=== PATIENT | female | born 1975 | race Caucasian/White ===

== ENCOUNTER → 2020-08-10 13:49 | Outpatient (CLI) | payer OTHER, SELFPAY ==
[2020-08-10] MEDS: COVID-19 VACC #1, MRNA(MOD) 100 MCG/0.5 ML VIAL IM (14:03)
== END ==
PROVIDERS: Family Provider Family Medicine; Visit Provider Internal Medicine
DX: Z23 Encounter for immunization (principal)
CPT/HCPCS: 0011A; 91301

== ENCOUNTER → 2020-09-07 13:44 | Outpatient (CLI) | payer OTHER, SELFPAY ==
[2020-09-07] MEDS: COVID-19 VACC #2, MRNA(MOD) 100 MCG/0.5 ML VIAL IM (13:50)
== END ==
PROVIDERS: Family Provider Family Medicine; Visit Provider Internal Medicine
DX: Z23 Encounter for immunization (principal)
CPT/HCPCS: 0012A; 91301

== ENCOUNTER 2021-08-05 10:28 | Emergency (ER) | payer OTHER, SELFPAY ==
[2021-08-05] VITALS (18 sets, daily range): BP systolic 146–190; BP diastolic 68–103; PULSE 53–69; RESP 18–26; TEMP 36.8; O2SAT 91–100; BMI 37.9
--- NOTE | 2021-08-05 10:48 | DI.RAD.S_ITS ---
PROCEDURE: XR CHEST 1V INDICATIONS: chest pain TECHNIQUE: One view of the chest was acquired. COMPARISON: [facility], , XR CXR 2V, 02/28/2005, 8:35. FINDINGS: Surgical changes and devices: None. 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 Lungs are clear. No pleural effusions or pneumothorax. Mediastinum: Mediastinal contours appear normal. Heart size is normal. Bones and chest wall: No suspicious bony lesions. Overlying soft tissues appear unremarkable. IMPRESSION: 1. No acute cardiopulmonary disease. 2. Chronic left hemidiaphragm elevation. Dictated by: Quirino Heard M.D. on 08/05/2021 at 11:07 Approved by: Quirino Heard M.D. on 08/05/2021 at 11:08
[2021-08-05 11:16] LABS: Add Manual Diff / Slide Review NO; Basophils Absolute Auto 100 /uL (0-100); Basophils Percent Auto 0.8 % (0-2); Eosinophils Absolute Auto 200 /uL (0-450); Eosinophils Percent Auto 3.2 % (2-4); Hematocrit 24.8 % (36-46); Hemoglobin 7.5 g/dL (12.0-16.0); Lymphocytes Absolute Auto 1400 /uL (1100-4500); Mean Corpuscular HGB Conc 30.1 % (30-36); Mean Corpuscular Hemoglobin 18.3 PG (26-34); Mean Corpuscular Volume 60.6 fL (80-100); Monocytes Absolute Auto 500 /uL (0-900); Monocytes Percent Auto 6.6 % (3-14); Neutrophils Absolute Auto 4700 /uL (1500-7000); Neutrophils Percent Auto 68.4 % (50-75); Platelet Count 409 X10^3/uL (150-400); Red Blood Cell Count 4.09 X10^6/uL (4.0-5.2); White Blood Cell Count 6.9 X10^3/uL (4.5-11.0)
[2021-08-05 11:19] LABS: Alanine Aminotransferase 16 IU/L (<35); Albumin 4.6 g/dL (3.5-5.0); Albumin Globulin Ratio 1.3 (1.0-2.8); Alkaline Phosphatase 81 U/L (38-126); Aspartate Aminotransferase 26 IU/L (14-36); BUN Creatinine Ratio 18.6 (6-22); Bilirubin Total 0.7 mg/dL (0.2-1.3); Blood Urea Nitrogen 11 mg/dL (7-17); Calcium 9.5 mg/dL (8.4-10.2); Carbon Dioxide 29 mmol/L (22-32); Chloride 103 mmol/L (98-107); Creatine Kinase 72 U/L (30-135); Estimated Glomerular Filt Rate > 60.0 mL/min (>60); Globulin 3.6 g/dL (1.7-4.1); Glucose 99 mg/dL (70-100); HEMOLYSIS < 15 (0-50); Lipase 105 U/L (23-300); Magnesium 1.6 mg/dL (1.6-2.3); Potassium 3.5 mmol/L (3.4-5.1); Sodium 139 mmol/L (137-145); Total Protein 8.2 g/dL (6.3-8.2)
[2021-08-05 11:28] LABS: Troponin I < 0.012 ng/mL (0.01-0.034)
[2021-08-05 11:50] LABS: COVID19 -Nasal RAPID Negative (Negative)
--- NOTE | 2021-08-05 11:59 | ED_ITS ---
HPI - Chest Pain General Chief Complaint: Chest Pain Stated Complaint: pressure in neck and mild chest pain Time Seen by Provider: 08/05/21 11:26 Source: patient Mode of arrival: Ambulatory Limitations: no limitations History of Present Illness HPI narrative: Patient is a 45-year-old female with history celiac disease presenting with for of symptoms. She says she feels pressure in her neck that is worse when she sits and lays down but improves with standing. She has no difficulty swallowing. She is not dizzy or lightheaded. She has felt fatigued and tired lately. She has had some hair loss is her weight has varied with weight loss and weight gain but thought to be due to other factors. She is also having some chest discomfort which radiates around to her back. She denies any significant shortness of breath dizziness lightheadedness. She denies any black stools. She has been taking a couple of ibuprofen daily to help with her headache and pressure or neck. Blood work has returned to his found to be anemic with hemoglobin 7.5 and hematocrit 24.8. Related Data Previous Rx's Medication Instructions Recorded ferrous sulfate 325 mg (65 mg 325 mg PO DAILY #60 tab 08/05/21 iron) tablet ferrous sulfate 325 mg (65 mg 325 mg PO TID #90 tab 08/05/21 iron) tablet Allergies Allergy/AdvReac Type Severity Reaction Status Date / Time No Known Drug Allergies Allergy Verified 08/05/21 10:52 Review of Systems Review of Systems Narrative: GENERAL: Denies chills, fatigue, malaise, fever, sweats, travel HEENT: See HPI RESPIRATORY: Denies dyspnea, cough, wheezing, hemoptysis, sputum. CARDIOVASCULAR: See HPI GASTROINTESTINAL: Denies nausea, vomiting, abdominal pain, diarrhea, constipation, melena. : Denies dysuria, frequency, incontinence, hematuria, urinary retention, flank pain. MUSCULOSKELETAL: Denies weakness, joint pain, or bony pain SKIN: No rash, no erythema, no pruritus NEUROLOGIC: Denies weakness, dizziness, headache, numbness, change in speech, confusion PSYCHIATRIC: No concerning psychosocial issues. 12 point review of systems is negative except for those stated above and HPI Patient History Surgical History (Updated 11/10/17 @ 06:03 by Conversion Provider) Status post delivery Status post delivery Status post cholecystectomy Status post colposcopy Status post loop electrosurgical excision procedure (LEEP) of cervix Family History (Updated 04/21/14 @ 00:00 by Conversion Provider) Father Age: 72 COPD (chronic obstructive pulmonary disease) Mother Age: 74 Heart problem Respiratory care problem Diabetes mellitus Sister Age: 47 Epilepsy Social History Smoking Status: Never smoker Smoking Status: Never smoker Substance Use Type: does not use Exam Initial Vital Signs Initial Vital Signs: Vital Signs Temperature 98.2 F 08/05/21 10:35 Pulse Rate 65 08/05/21 10:35 Respiratory Rate 18 08/05/21 10:35 Blood Pressure 190/103 H 08/05/21 10:35 Pulse Oximetry 98 08/05/21 10:35 GENERAL: Alert slightly pale 45-year-old female and in no acute distress. HEENT: Head atraumatic,EOMI, pupils reactive, face symmetric, moist] mucous membranes NECK: No obvious mass no thyroid goiter is present, managing own secretions CARDIOVASCULAR: Regular rate and rhythm without murmurs, rubs or gallops. RESPIRATORY: Breath sounds equal bilaterally, no wheezes rales or rhonchi. ABDOMEN: Soft, nontender. Normoactive bowel sounds all 4 quadrants. No guarding or rebound. RECTAL: Guaiac-negative EXTREMITIES: Normal range of motion, no clubbing or edema. Neurovascularly intact NEUROLOGICAL: Alert and oriented x4.Normal gait and speech SKIN: Warm, dry, no laceration, no petechiae, no rashes or lesions. Course Orders Ordered: ED Orders 08/05/21 10:43 Complete Blood Count AUTO DIFF Stat Comprehensive Metabolic Panel Stat Iron Profile (w/ % Saturation) Stat Lipase Stat Magnesium Stat TSH w/ Reflex to FT4 Stat Troponin & CK Cardiac Panel Stat 08/05/21 10:48 XR chest 1V Stat EKG-12 Lead Stat 08/05/21 10:53 COVID19 -Nasal swab/Pre-Proc Stat 08/05/21 12:20 Type and Screen Stat 08/05/21 12:33 CT soft tissue neck w con Stat Vital Signs Vital signs: Vital Signs - 8 hr 08/05/21 11:00 08/05/21 11:01 08/05/21 11:15 Pulse Rate 68 69 64 Respiratory Rate 22 20 24 Blood Pressure 155/86 H 150/85 H Pulse Oximetry 96 97 96 08/05/21 11:30 08/05/21 11:31 08/05/21 11:46 Pulse Rate 69 64 61 Respiratory Rate Blood Pressure 149/68 H 159/100 H Pulse Oximetry 97 97 92 08/05/21 12:00 08/05/21 12:16 08/05/21 12:30 Pulse Rate 61 68 68 Respiratory Rate 26 H 25 H 24 Blood Pressure 163/97 H 169/97 H 173/102 H Pulse Oximetry 95 97 98 08/05/21 12:55 08/05/21 13:00 08/05/21 13:01 Pulse Rate 67 54 L 53 L Respiratory Rate 24 Blood Pressure 153/72 H 151/81 H Pulse Oximetry 100 97 96 08/05/21 13:15 08/05/21 13:30 08/05/21 13:31 Pulse Rate 57 L 58 L 55 L Respiratory Rate Blood Pressure 155/83 H 146/98 H Pulse Oximetry 96 91 95 08/05/21 13:45 Pulse Rate 63 Respiratory Rate 24 Blood Pressure 154/100 H Pulse Oximetry 96 MDM - Chest Pain Lab Data Result diagrams: 08/05/21 10:43 08/05/21 10:43 Labs: Lab Results 08/05/21 08/05/21 08/05/21 Range/Units 10:43 10:43 10:43 WBC 6.9 (4.5-11.0) X10^3/uL RBC 4.09 (4.0-5.2) X10^6/uL Hgb 7.5 L (12.0-16.0) g/dL Hct 24.8 L (36-46) % MCV 60.6 L (80-100) fL MCH 18.3 L (26-34) PG MCHC 30.1 (30-36) % RDW 19.0 H (11.6-14.8) % Plt Count 409 H (150-400) X10^3/uL Neut % (Auto) 68.4 (50-75) % Lymph % (Auto) 21.0 L (25-40) % [place] % (Auto) 6.6 (3-14) % Eos % (Auto) 3.2 (2-4) % Baso % (Auto) 0.8 (0-2) % Neut # (Auto) 4700 (4866-5628) /uL Lymph # (Auto) 1400 (5649-9015) /uL [place] # (Auto) 500 (0-900) /uL Eos # (Auto) 200 (0-450) /uL Baso # (Auto) 100 (0-100) /uL RBC Morphology See below Hypochromasia 2+ H Microcytosis 3+ H Ovalocytes 1+ H Sodium 139 (137-145) mmol/L Potassium 3.5 (3.4-5.1) mmol/L Chloride 103 (98-107) mmol/L Carbon Dioxide 29 (22-32) mmol/L BUN 11 (7-17) mg/dL Creatinine 0.59 (0.52-1.04) mg/dL Estimated GFR > 60.0 (>60) mL/min BUN/Creatinine Ratio 18.6 (6-22) Glucose 99 (70-100) mg/dL Calcium 9.5 (8.4-10.2) mg/dL Magnesium 1.6 (1.6-2.3) mg/dL Iron (37-170) ug/dL TIBC (265-497) ug/dL % Saturation (15-50) % Transferrin (206-381) mg/dL Total Bilirubin 0.7 (0.2-1.3) mg/dL AST 26 (14-36) IU/L ALT 16 (<35) IU/L Alkaline Phosphatase 81 (38-126) U/L Total Creatine Kinase 72 (30-135) U/L CK-MB (CK-2) TNP CK-MB (CK-2) Rel Index TNP Troponin I < 0.012 (0.01-0.034) ng/mL Total Protein 8.2 (6.3-8.2) g/dL Albumin 4.6 (3.5-5.0) g/dL Globulin 3.6 (1.7-4.1) g/dL Albumin/Globulin Ratio 1.3 (1.0-2.8) Lipase 105 (23-300) U/L TSH 1.87 (0.47-4.68) uIU/mL SARS-CoV-2 (PCR) (Negative) Blood Type Antibody Screen 08/05/21 08/05/21 08/05/21 Range/Units 10:43 10:53 12:20 WBC (4.5-11.0) X10^3/uL RBC (4.0-5.2) X10^6/uL Hgb (12.0-16.0) g/dL Hct (36-46) % MCV (80-100) fL MCH (26-34) PG MCHC (30-36) % RDW (11.6-14.8) % Plt Count (150-400) X10^3/uL Neut % (Auto) (50-75) % Lymph % (Auto) (25-40) % [place] % (Auto) (3-14) % Eos % (Auto) (2-4) % Baso % (Auto) (0-2) % Neut # (Auto) (6371-8692) /uL Lymph # (Auto) (2648-8497) /uL [place] # (Auto) (0-900) /uL Eos # (Auto) (0-450) /uL Baso # (Auto) (0-100) /uL RBC Morphology Hypochromasia Microcytosis Ovalocytes Sodium (137-145) mmol/L Potassium (3.4-5.1) mmol/L Chloride (98-107) mmol/L Carbon Dioxide (22-32) mmol/L BUN (7-17) mg/dL Creatinine (0.52-1.04) mg/dL Estimated GFR (>60) mL/min BUN/Creatinine Ratio (6-22) Glucose (70-100) mg/dL Calcium (8.4-10.2) mg/dL Magnesium (1.6-2.3) mg/dL Iron 15 L (37-170) ug/dL TIBC 435 (265-497) ug/dL % Saturation 3 L (15-50) % Transferrin 337 (206-381) mg/dL Total Bilirubin (0.2-1.3) mg/dL AST (14-36) IU/L ALT (<35) IU/L Alkaline Phosphatase (38-126) U/L Total Creatine Kinase (30-135) U/L CK-MB (CK-2) CK-MB (CK-2) Rel Index Troponin I (0.01-0.034) ng/mL Total Protein (6.3-8.2) g/dL Albumin (3.5-5.0) g/dL Globulin (1.7-4.1) g/dL Albumin/Globulin Ratio (1.0-2.8) Lipase (23-300) U/L TSH (0.47-4.68) uIU/mL SARS-CoV-2 (PCR) Negative (Negative) Blood Type O Positive Antibody Screen Negative Urine Dip Bedside Urine Glucose Negative Bedside Urine Bilirubin - Negative Bedside Urine Ketone - Negative Urine Specific Gunpowder 1.015 Bedside Urine Occult Blood - Negative Bedside Urine pH 6.0 Bedside Urine Protein - Negative Bedside Urine Urobilinogen - Negative Bedside Urine Nitrite - Negative Bedside Urine Leukocytes - Negative Esterase Imaging Data Chest x-ray: Radiologist's Impression: PROCEDURE:? XR CHEST 1V ? INDICATIONS:? chest pain ? TECHNIQUE:? One view of the chest was acquired.? ? COMPARISON:? [facility], RG, XR CXR 2V, 02/28/2005, 8:35. ? FINDINGS:? ? Surgical changes and devices:? None.? ? Lungs and pleura:? 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 Lungs are clear.? No pleural effusions or pneumothorax.? ? Mediastinum:? Mediastinal contours appear normal.? Heart size is normal.? ? Bones and chest wall:? No suspicious bony lesions.? Overlying soft tissues appear unremarkable.? ? IMPRESSION:? ? 1. No acute cardiopulmonary disease. ? 2. Chronic left hemidiaphragm elevation. ? Dictated by: Quirino Heard M.D. on 08/05/2021 at 11:07 ? ? Approved by: Quirino Haerd M.D. on 08/05/2021 at 11:08 ? CT soft tissue: Radiologist's Impression: PROCEDURE:? CT SOFT TISSUE NECK W CON ? INDICATIONS:? neck pressure ? TECHNIQUE:? After the administration of intravenous contrast, 3.0 mm axial sections acquired from the sella to the aortic arch.? Additional oblique axial 3.0 mm sections acquired through the pharynx.? 3 mm thick coronal and sagittal reformats were generated.? For radiation dose reduction, the following was used:? automated exposure control.? ? COMPARISON:? [facility], CT, SOFT TISSUE NECK W CONTRAST, 12/04/2012, 12:20. ? FINDINGS:? Image quality:? Excellent.? ? Lymph nodes:? No enlarged lymph nodes seen throughout the neck.? ? Vessels:? Visualized vasculature appears patent.? Scattered borderline prominent lymph nodes are seen, as before.? No suspicious features are detected. ? Neck spaces:? In this patient with this given history, scrutiny is given to the airway.? No focal airway narrowing can be seen.? The oropharynx, nasopharynx, and pharynx demonstrate no mucosal lesions.? The vocal cords, false vocal cords, pyriform sinuses, epiglottis, vallecula, and tongue base all appear normal.? Extramucosal spaces appear unremarkable.? ? Glands:? The parotid and submandibular glands appear normal.? Thyroid gland demonstrates no significant abnormality.? ? Miscellaneous:? Visualized brain and orbits appear normal.? Lung apices appear clear.? Superficial soft tissues appear normal. ? Bones:? No suspicious bony lesions.? Mucous retention cysts can be seen involving the inferior left maxillary sinus.? Visualized sinuses and mastoids otherwise appear unremarkable.? IMPRESSION:? The airway demonstrates an unremarkable appearance. ? No mucosal masses are seen. ? No soft tissue masses are seen. ? Dictated by: Jermaine Irby M.D. on 08/05/2021 at 11:29 ?? ECG Data Interpretation: Normal sinus rhythm rate 60 p.r. interval 156 QRS [address] changes no T- wave inversions MDM Narrative Medical decision making narrative: Patient is having abnormal symptoms the pressure in her throat but no difficulty swelling no palpable mass. CT does not show any mass. She does have occasional palpitations of her heart. She is found to be quite iron deficient. But overall seems relatively asymptomatic. She is guaiac negative unclear why she is so iron deficient however I do recommend starting her on iron supplement at this time is is not hemodynamically unstable does not need blood transfusion. When questioned about celiac disease she states that she does not have celiac disease she was tested number of years ago when she was . Discharge Plan Departure Patient Disposition: Home Clinical Impression: Iron deficiency anemia Instructions: DI for Iron Deficiency Anemia-Adult Activity Restrictions/Additional Instructions: *You have been diagnosed with iron deficiency anemia *What to do: At this time you are any make it may be causing some of her sympto ms however and may not be. It is important have close follow-up with a primary care provider. You will need to have blood work rechecked. *Continue to take medications as directed--> SENT TO [place] Ferrous sulfate once daily, this can cause constipation and black stools. You may need to take a stool softener to help with. *Follow up with your primary care provider in 2-3 days or call [phone] *Return to ER if you should have increasing shortness of breath difficulty swallowing pain dizziness lightheadedness or any new, worsening or concerning symptoms Prescriptions: New ferrous sulfate 325 mg (65 mg iron) tablet 325 mg PO TID Qty: 90 0RF ferrous sulfate 325 mg (65 mg iron) tablet 325 mg PO DAILY Qty: 60 0RF Referrals: Miscellaneous,Doctor, MD [Primary Care Provider] -
[2021-08-05 12:03] LABS: Microcytosis 3+; Ovalocytes 1+
[2021-08-05 12:04] LABS: Hypochromasia 2+
--- NOTE | 2021-08-05 12:33 | DI.CT.S_ITS ---
PROCEDURE: CT SOFT TISSUE NECK W CON INDICATIONS: neck pressure TECHNIQUE: After the administration of intravenous contrast, 3.0 mm axial sections acquired from the sella to the aortic arch. Additional oblique axial 3.0 mm sections acquired through the pharynx. 3 mm thick coronal and sagittal reformats were generated. For radiation dose reduction, the following was used: automated exposure control. COMPARISON: [facility], CT, SOFT TISSUE NECK W CONTRAST, 12/04/2012, 12:20. FINDINGS: Image quality: Excellent. Lymph nodes: No enlarged lymph nodes seen throughout the neck. Vessels: Visualized vasculature appears patent. Scattered borderline prominent lymph nodes are seen, as before. No suspicious features are detected. Neck spaces: In this patient with this given history, scrutiny is given to the airway. No focal airway narrowing can be seen. The oropharynx, nasopharynx, and pharynx demonstrate no mucosal lesions. The vocal cords, false vocal cords, pyriform sinuses, epiglottis, vallecula, and tongue base all appear normal. Extramucosal spaces appear unremarkable. Glands: The parotid and submandibular glands appear normal. Thyroid gland demonstrates no significant abnormality. Miscellaneous: Visualized brain and orbits appear normal. Lung apices appear clear. Superficial soft tissues appear normal. Bones: No suspicious bony lesions. Mucous retention cysts can be seen involving the inferior left maxillary sinus. Visualized sinuses and mastoids otherwise appear unremarkable. IMPRESSION: The airway demonstrates an unremarkable appearance. No mucosal masses are seen. No soft tissue masses are seen. Dictated by: Jermaine Irby M.D. on 08/05/2021 at 11:29 Approved by: Jermaine Irby M.D. on 08/05/2021 at 11:31
[2021-08-05 12:56] LABS: HEMOLYSIS < 15 (0-50); Iron 15 ug/dL (37-170)
[2021-08-05 13:07] LABS: Percent Iron Saturation 3 % (15-50); Total Iron Binding Capacity 435 ug/dL (265-497); Transferrin 337 mg/dL (206-381)
[2021-08-05 13:32] LABS: TSH w/ Reflex to FT4 1.87 uIU/mL (0.47-4.68)
== END 2021-08-05 13:59 | disposition home or self-care (01) ==
PROVIDERS: Emergency Provider Emergency Medicine; Family Provider Family Medicine
DX: D50.9 Iron deficiency anemia, unspecified (principal); M54.2 Cervicalgia; R07.9 Chest pain, unspecified; R00.2 Palpitations; Z20.822 Contact with and (suspected) exposure to COVID-19
CPT/HCPCS: 36415; 70491; 71045; 80053; 81003; 82550; 83540; 83550; 83690; 83735; 84443; 84484; 85025; 86850; 86900; 86901; 87635; 93005; 99283; 99284; C9803; Q9967

== ENCOUNTER → 2022-06-24 09:19 | Outpatient (CLI) | payer OTHER, SELFPAY ==
[2022-06-24 10:27] LABS: COVID-19 CEPHEID 4-PLEX PCR Negative (Negative); Influenza A - CEPHEID Flu A POSITIVE (NEGATIVE); Influenza B - CEPHEID Flu B NEGATIVE (NEGATIVE); Respiratory Syncytial Virus Negative (Negative)
== END ==
PROVIDERS: Family Provider Family Medicine; Visit Provider Registered Nurse
DX: R05.1 Acute cough (principal); Z20.822 Contact with and (suspected) exposure to COVID-19
CPT/HCPCS: 0241U

== ENCOUNTER → 2022-06-28 08:06 | Outpatient (CLI) | payer OTHER, SELFPAY ==
--- NOTE | 2022-06-28 08:07 | DI.RAD.S_ITS ---
PROCEDURE: XR CHEST 2V INDICATIONS: Worsening cough TECHNIQUE: 2 views of the chest were acquired. COMPARISON: [facility], CR, XR CHEST 1V, 08/05/2021, 10:56. FINDINGS: Surgical changes and devices: None. Lungs and pleura: Slightly increased opacities in the left perihilar region. No pleural effusions. Left hemidiaphragm elevation. Mediastinum: Mediastinal contours are normal. Heart size is normal. Bones and chest wall: No suspicious bony abnormalities. Soft tissues appear unremarkable. IMPRESSION: Increased left perihilar opacities suspicious for developing infection in the setting of worsening cough. Consider future imaging surveillance to assess for resolution. Dictated by: Sundeep Byrne M.D. on 06/28/2022 at 7:56 Approved by: Sundeep Byrne M.D. on 06/28/2022 at 7:58
== END ==
PROVIDERS: Family Provider Family Medicine; Referring Provider Registered Nurse; Visit Provider Registered Nurse
DX: R06.2 Wheezing (principal)
CPT/HCPCS: 71046

== ENCOUNTER → 2023-04-01 07:56 | Outpatient (CLI) | payer OTHER, SELFPAY ==
[2023-04-01 08:54] LABS: Add Manual Diff / Slide Review NO; Basophils Absolute Auto 0 /uL (0-100); Basophils Percent Auto 0.5 % (0-2); Eosinophils Absolute Auto 200 /uL (0-450); Eosinophils Percent Auto 2.7 % (2-4); Hematocrit 30.3 % (36-46); Hemoglobin 9.5 g/dL (12.0-16.0); Lymphocytes Absolute Auto 1500 /uL (1100-4500); Lymphocytes Percent Auto 17.9 % (25-40); Mean Corpuscular HGB Conc 31.4 % (30-36); Mean Corpuscular Hemoglobin 21.5 PG (26-34); Mean Corpuscular Volume 68.5 fL (80-100); Monocytes Absolute Auto 400 /uL (0-900); Monocytes Percent Auto 5.2 % (3-14); Neutrophils Absolute Auto 6200 /uL (1500-7000); Neutrophils Percent Auto 73.7 % (50-75); Platelet Count 407 X10^3/uL (150-400); Red Blood Cell Count 4.42 X10^6/uL (4.0-5.2); White Blood Cell Count 8.4 X10^3/uL (4.5-11.0)
[2023-04-01 09:15] LABS: HEMOLYSIS < 15 (0-50); Iron 53 ug/dL (37-170)
[2023-04-01 09:27] LABS: Alanine Aminotransferase 18 IU/L (<35); Albumin 4.1 g/dL (3.5-5.0); Albumin Globulin Ratio 1.2 (1.0-2.8); Alkaline Phosphatase 68 U/L (38-126); Aspartate Aminotransferase 24 IU/L (14-36); Bilirubin Total 0.5 mg/dL (0.2-1.3); Blood Urea Nitrogen 8 mg/dL (7-17); Calcium 9.1 mg/dL (8.4-10.2); Carbon Dioxide 26 mmol/L (22-32); Chloride 104 mmol/L (98-107); Cholesterol 140 mg/dL (140-199); Estimated Glomerular Filt Rate > 60 mL/min (>60); Globulin 3.4 g/dL (1.7-4.1); Glucose 99 mg/dL (70-100); HDL Cholesterol 27 mg/dL (40-60); HEMOLYSIS < 15 (0-50); LDL Cholesterol Calculated 89 mg/dL (<100); Potassium 3.5 mmol/L (3.4-5.1); Sodium 139 mmol/L (137-145); Total Protein 7.5 g/dL (6.3-8.2); Triglycerides 122 mg/dL (35-150)
[2023-04-01 09:28] LABS: Percent Iron Saturation 13 % (15-50); Total Iron Binding Capacity 395 ug/dL (265-497); Transferrin 280 mg/dL (206-381)
[2023-04-01 09:33] LABS: Anisocytosis 1+; Microcytosis 1+
[2023-04-01 09:36] LABS: Ovalocytes 1+
[2023-04-01 16:52] LABS: Hemoglobin A1C% w Est Avg Glu 5.4 % (4.0-6.0)
== END ==
PROVIDERS: Family Provider Family Medicine; PCP Student in an Organized Health Care Education/Training Program; Referring Provider Student in an Organized Health Care Education/Training Program; Visit Provider Student in an Organized Health Care Education/Training Program
DX: Z86.2 Personal history of diseases of the blood and blood-forming organs and certain disorders involving the immune mechanism (principal); E66.9 Obesity, unspecified; Z13.220 Encounter for screening for lipoid disorders
CPT/HCPCS: 36415; 80053; 80061; 83036; 83540; 83550; 85025